=== PATIENT | female | born 1960 | race Caucasian/White ===

== ENCOUNTER 2017-03-12 07:43 | Emergency (ER) | payer BC ==
[2017-03-12 08:08] LABS: #Eosinphils 0.1 thou/uL (0.0-0.7); #Lymphocytes 3.6 thou/uL (1.20-3.40); #Monocytes 0.6 thou/uL (0.11-0.59); #Neutrophils 5.2 thou/uL (1.40-6.50); %Basophils 0.4 % (0.0-1.0); %Eosinophils 1.4 % (0.0-10.0); %Lymphocytes 37.8 % (21.0-51.0); %Monocytes 6.3 % (0.0-10.0); Hemoglobin 14.2 g/dL (12.0-16.0); Mean Corpuscular HGB CONC 33.8 g/dL (32.0-36.0); Mean Corpuscular Volume 91.8 fl (81.0-99.0); Mean Platelet Volume 8.1 fL (7.4-10.4); Platelet Count 285 thou/uL (130-400); RBC Distribution Width 11.3 % (11.5-14.5); Red Blood Cell (RBC) Count 4.57 mill/uL (4.20-5.40); White Blood Cell (WBC) Count 9.7 thou/uL (4.8-10.8)
[2017-03-12] MEDS ORDERED: Ondansetron HCl/PF 4 MG/2 ML Vial ONE (08:08)
[2017-03-12] MEDS ORDERED: Pantoprazole 40 MG VIAL ONE (08:08)
[2017-03-12] MEDS ORDERED: Lidocaine 2% Viscous Solution 20 ML, Aluminum & Magnesium Hydroxide 30 ML, Donnatal Eli... SSW SCH ×3 (08:15)
--- NOTE | 2017-03-12 08:22 | RAD ---
SINGLE VIEW OF THE CHEST: COMPARISON: 10/11/08. HISTORY: Chest pain with dizziness, nausea, and vomiting. FINDINGS: Single view of the chest shows a normal sized cardiomediastinal silhouette. There is no evidence of c onsolidation, mass, or pleural effusion. The bones are unremarkable. IMPRESSION: No evidence of acute cardiopulmonary disease. POS: [facility]
[2017-03-12 08:30] LABS: ALT (SGPT) 51 U/L (8-55); AST (SGOT) 24 U/L (5-34); Albumin 4.8 g/dL (3.5-5.0); Alkaline Phosphatase 100 U/L (40-150); Anion Gap 18 mmol/L (10-20); BUN (Urea Nitrogen) 16 mg/dL (9.8-20.1); Bilirubin, Total 0.9 mg/dL (0.2-1.2); CK (CPK) 72 U/L (29-168); Calc. Creatinine Clearance 0 mL/min (70-130); Calcium 10.2 mg/dL (7.8-10.44); Carbon Dioxide 23 mmol/L (22-29); Chloride 102 mmol/L (98-107); Estimated GFR-MDRD 78; Globulin 3.5 g/dL (2.4-3.5); Glucose 119 mg/dL (70-105); Potassium 3.8 mmol/L (3.5-5.1); Protein, Total 8.3 g/dL (6.0-8.3); Sodium 139 mmol/L (136-145)
[2017-03-12 08:34] LABS: CKMB 0.7 ng/mL (0-6.6); Troponin I Less than 0.010 ng/mL (< 0.028)
[2017-03-12] MEDS ORDERED: Metoclopramide HCl 10 MG/2 ML VIAL ONE (08:53)
[2017-03-12] MEDS ORDERED: Meclizine HCl 25 MG TAB ONE (08:53)
--- NOTE | 2017-03-12 09:22 | CT ---
CT OF THE BRAIN WITHOUT CONTRAST: COMPARISON: 10/11/12. HISTORY: Dizziness with nausea and vomiting that started 2 days ago. TECHNIQUE: Multiple contiguous axial images were obtained in a CT of the brain without contrast. FINDINGS: The brain is normal in morphology and attenuation without focal lesions or confluent areas of infarct ion. There is no evidence of hydrocephalus, intracranial hemorrhage, or extraaxial fluid collection. The calvarium and overlying soft tissues are unremarkable. The visualized paranasal sinuses and mast oid air cells are well aerated. IMPRESSION: No evidence of acute intracranial abnormality. POS: [facility]
--- NOTE | 2017-03-12 10:06 | CT ---
CT ARTERIOGRAM CHEST WITH IV CONTRAST AND 3D MIP IMAGING: HISTORY: Chest pain. FINDINGS: There is good contrast opacification of the pulmonary arteries and thoracic aorta with normal branchi ng of the great vessels. Irregularity parenchymal opacity at the left anterior lateral lung base is stable compared to CT chest from 04/03/15. It may represent an area of scarring. No pleural fluid or mediastinal adenopathy are visible. The inferiormost image shows a small hyperdensity in the gallbl adder lumen that may represent the historically stated gallstone. IMPRESSION: No CT evidence of pulmonary embolus. POS: [facility]
[2017-03-12] MEDS ORDERED: ISOVUE-370 76%-LOCM 1 ML ONE (16:53)
== END 2017-03-12 12:13 | disposition home or self-care (01) ==
LOC: ERS 07:43
DX: K21.9 Gastro-esophageal reflux disease without esophagitis (principal); H81.13 Benign paroxysmal vertigo, bilateral; E78.5 Hyperlipidemia, unspecified; I10 Essential (primary) hypertension; E05.90 Thyrotoxicosis, unspecified without thyrotoxic crisis or storm
CPT/HCPCS: 70450; 71045; 71275; 80053; 82553; 83690; 84484; 85025; 85379; 93005; 96365; 96366; 96375; C9113; J2405; J2765

== ENCOUNTER 2017-03-31 09:30 | Outpatient (CLI) | payer BC ==
[2017-03-31] MEDS ORDERED: Iopamidol 370 76% 100 ML VIAL ONE (13:26)
== END 2017-03-31 09:31 | disposition home or self-care (01) ==
LOC: BICCT 09:30
PROVIDERS: ATTEND Family Medicine
DX: R10.11 Right upper quadrant pain (principal); R11.2 Nausea with vomiting, unspecified
CPT/HCPCS: 74160

== ENCOUNTER 2017-04-04 08:40 | Outpatient (CLI) | payer BC | END 2017-04-04 08:41 | disposition home or self-care (01) | LOC: BICRAD 08:40 | PROVIDERS: ATTEND Family Medicine | DX: R05 Cough (principal); J98.11 Atelectasis | CPT/HCPCS: 71046 ==

== ENCOUNTER 2018-05-19 07:34 | Outpatient (CLI) | payer BC ==
--- NOTE | 2018-05-19 08:51 | CT ---
CT OF THE ABDOMEN AND PELVIS WITH IV CONTRAST: Date: 05/19/18 CONTRAST: 70 mL [id number]. INDICATION: History of diverticulitis with lower pelvic pain and abnormal discharge. COMPARISON: CT of the abdomen and pelvis dated 04/03/15. FINDINGS: There is subsegmental atelectasis involving both lower lobes. There is mild fatty infiltration of the liver. Pancreas, adrenal glands, and kidneys appear within normal limits. There are a few small hypodensitie s within the left kidney that cannot be further characterized. Spleen is normal appearing. There are mild vascular calcifications involving the abdominal aorta. There are a few scattered diverticula involving the sigmoid colon without evidence of active divertic ulitis. Small and large bowel appear within normal limits. The appendix is not definitely visualized. No free fluid is evident. No enlarged lymph nodes are demonstrated. There is mild diffuse osteopenia. There is scattered degenerative and osteoarthritic change. No definite acute osseous abnormality is evident. IMPRESSION: 1. No definite acute CT abnormality within the abdomen or pelvis. 2. Colonic diverticulosis without evidence of active diverticulitis. 3. Fatty liver. 4. Tiny left renal hypodensities, stable to prior exam, difficult to characterize due to their size, but statistically likely reflective of cysts. POS: [facility]
[2018-05-19] MEDS ORDERED: ISOVUE-370 76%-LOCM 1 ML ONE (15:23)
== END 2018-05-19 07:35 | disposition home or self-care (01) ==
LOC: BICCT 07:34
PROVIDERS: ATTEND Specialist
DX: K57.30 Diverticulosis of large intestine without perforation or abscess without bleeding (principal); K76.0 Fatty (change of) liver, not elsewhere classified; R93.422 Abnormal radiologic findings on diagnostic imaging of left kidney
CPT/HCPCS: 74177; Q9966

== ENCOUNTER 2018-05-29 00:09 | Outpatient (CLI) | payer BC ==
[2018-05-29 19:47] LABS: #Basophils 0.1 thou/uL (0.0-0.2); #Eosinphils 0.1 thou/uL (0.0-0.7); #Lymphocytes 2.9 thou/uL (1.20-3.40); #Monocytes 0.6 thou/uL (0.11-0.59); #Neutrophils 3.8 thou/uL (1.40-6.50); %Basophils 0.9 % (0.0-1.0); %Eosinophils 1.3 % (0.0-10.0); %Lymphocytes 38.9 % (21.0-51.0); %Monocytes 7.4 % (0.0-10.0); %Neutrophils 51.5 % (42.0-75.0); Hemoglobin 13.8 g/dL (12.0-16.0); Mean Corpuscular HGB CONC 32.7 g/dL (32.0-36.0); Mean Corpuscular Hemoglobin 30.7 pg (27.0-31.0); Mean Corpuscular Volume 93.8 fL (78.0-98.0); Mean Platelet Volume 8.9 fL (7.4-10.4); Platelet Count 238 thou/uL (130-400); RBC Distribution Width 11.5 % (11.5-14.5); Red Blood Cell (RBC) Count 4.51 mill/uL (4.20-5.40); White Blood Cell (WBC) Count 7.4 thou/uL (4.8-10.8)
[2018-05-29 19:55] LABS: ALT (SGPT) 48 U/L (8-55); AST (SGOT) 29 U/L (5-34); Albumin 4.5 g/dL (3.5-5.0); Alkaline Phosphatase 91 U/L (40-150); Anion Gap 13 mmol/L (10-20); BUN (Urea Nitrogen) 11 mg/dL (9.8-20.1); Bilirubin, Total 0.8 mg/dL (0.2-1.2); Calc. Creatinine Clearance 0 mL/min (70-130); Calcium 9.8 mg/dL (7.8-10.44); Carbon Dioxide 24 mmol/L (22-29); Chloride 105 mmol/L (98-107); Estimated GFR-MDRD 85; Glucose 97 mg/dL (70-105); Potassium 4.3 mmol/L (3.5-5.1); Protein, Total 7.5 g/dL (6.0-8.3); Sodium 138 mmol/L (136-145)
[2018-05-29 20:17] LABS: Hemoglobin A1c 5.2 % (4.0-6.0)
== END 2018-05-29 00:10 | disposition home or self-care (01) ==
LOC: LABBT 00:09
PROVIDERS: ATTEND Specialist
DX: Z01.812 Encounter for preprocedural laboratory examination (principal); K57.90 Diverticulosis of intestine, part unspecified, without perforation or abscess without bleeding; N82.4 Other female intestinal-genital tract fistulae
CPT/HCPCS: 80053; 83036; 85025

== ENCOUNTER 2018-05-29 08:00 | Inpatient (IN) | payer BC ==
--- NOTE | 2018-05-26 13:50 | HP ---
HISTORY OF PRESENT ILLNESS: Alyx Huizar is a 57-year-old female patient, whom Dr. Jones has placed on antibiotics in March 2018 for diverticulitis. She has had a [address] Sanchez, in [address] Acosta documenting diverticulosis. The patient shortly after beginning oral antibiotics in March 2018, began having vaginal discharge. This is more copious at times and more . She is passing flatus and stool out of her vagina. This is a bloody discharge at times. She did have a CAT scan in March 2015 that was normal. The patient still has some lower abdominal pain and tenderness, has completed her antibiotics in March. She has not been on antibiotics since. ALLERGIES: NONE. SOCIAL HISTORY: Tobacco, none. Alcohol, occasionally. MEDICATIONS: 1. Synthroid. 2. Lovaza. 3. Lipitor. 4. Vitamin D. ALLERGIES: NONE. PAST SURGICAL HISTORY: Total abdominal hysterectomy, bilateral salpingo-oophorectomy, endometriosis over two operations. She reports that during her oophorectomy, operation was difficult due to adhesions, Dr. Hernandez. Past colonoscopies as noted above. PAST MEDICAL HISTORY: Hypertension, hypothyroidism, surgically migraines treated with above regimen with past colonoscopies. REVIEW OF SYSTEMS: Ten-point noncontributory. PHYSICAL EXAMINATION: GENERAL: Weight 196 pounds, height 62 inches. Blood pressure 147/81, pulse 107, and temperature 97.9 degrees. HEAD, EARS, EYES, NOSE, AND THROAT: Unremarkable. LUNGS: Clear to auscultation. CARDIAC: Regular rate and rhythm without murmur or gallop. ABDOMEN: Soft. Mild tenderness in her lower abdomen, left lower quadrant without peritoneal signs. Upper abdomen is soft and nontender. EXTREMITIES: Unremarkable. ASSESSMENT AND PLAN: 1. Diverticulitis with colovaginal fistula. We have talked to Dr. Adrienne Sanchez and we will coordinate a bowel prep and colonoscopy, and she will stay on liquids after that and plan a laparoscopic sigmoid resection and colorectal anastomosis. She understands risks of infection, bleeding, reoperation, anastomotic leakage, and consents. 2. Plan CAT scan of the abdomen and pelvis to evaluate her abdominal pain. 3. Surgical hypothyroidism, medically treated. 4. History of migraines, history of diverticulosis. We will start her on antibiotics orally, Augmentin 500 b.i.d. Job ID: [id number]
[2018-05-29 08:20] VITALS: BMI 33.6
[2018-05-31] MEDS ORDERED: Meropenem 2 GM in Sodium Chloride 0.9% 100 ML IVPB SCH (06:30)
[2018-05-31] MEDS ORDERED: Midazolam HCl 2 mg/2 ml Vial ONE (06:37)
[2018-05-31] MEDS ORDERED: Fentanyl 100 MCG/2 ML VIAL ONE ×5 (06:37→13:30)
[2018-05-31] MEDS ORDERED: Dexamethasone 4 mg/ml Vial ONE (06:38)
[2018-05-31] MEDS ORDERED: Scopolamine 1.5 mg/72 hour Patch ONE (06:43)
[2018-05-31] MEDS ORDERED: Ketorolac Tromethamine 30 MG/ML VIAL ONE ×2 (06:43→12:01)
[2018-05-31] MEDS ORDERED: Famotidine/PF 20 mg/2ml Vial ONE (07:29)
[2018-05-31] MEDS ORDERED: Albuterol Sulfate HFA (OR ONLY) ONE (07:30)
[2018-05-31] MEDS ORDERED: Albumin 5% 500 ML ONE (09:49)
[2018-05-31] MEDS ORDERED: Rocuronium Bromide 50 MG/5 ML VIAL ONE (10:12)
[2018-05-31] MEDS ORDERED: SUGAMMADEX SODIUM 200 MG/2 ML VIAL ONE (10:28)
[2018-05-31] MEDS ORDERED: Meperidine HCl/PF 25 MG/ML VIAL SLOW IVP PRN (10:57)
[2018-05-31] MEDS ORDERED: Promethazine HCl 25 MG/ML VIAL SLOW IVP PRN (10:57)
[2018-05-31] MEDS ORDERED: Ondansetron HCl/PF 4 MG/2 ML Vial IVP PRN (10:57)
[2018-05-31] MEDS ORDERED: Promethazine HCl 25 MG/ML VIAL IM PRN (10:57)
[2018-05-31] MEDS ORDERED: HYDROmorphone 2 MG/ML VIAL SLOW IVP PRN (10:57)
[2018-05-31] MEDS ORDERED: Ketorolac Tromethamine 30 MG/ML VIAL IVP PRN (10:57)
[2018-05-31] MEDS ORDERED: Morphine 4 MG/ML VIAL SLOW IVP PRN (11:15)
[2018-05-31] MEDS ORDERED: Ondansetron PF 4 MG/2 ML Vial IVP PRN (11:15)
[2018-05-31] MEDS ORDERED: D5 1/2 NS w/20 mEq KCL 1,000 ML IV SCH (11:15)
[2018-05-31] MEDS ORDERED: Morphine 2 MG/ML SYRINGE SLOW IVP PRN (11:15)
[2018-05-31] MEDS ORDERED: hydrALAZINE 20 MG/ML VIAL SLOW IVP PRN (11:15)
[2018-05-31] MEDS ORDERED: Dextrose 5% in Water 1,000 ML IV PRN (11:45)
[2018-05-31] MEDS ORDERED: Insulin Regular 300 UNITS/3 ML VIAL SC PRN (11:45)
[2018-05-31] MEDS ORDERED: Dextrose 50% Abboject 50 ML SYRINGE SLOW IVP PRN (11:45)
[2018-05-31] MEDS ORDERED: HumaLOG 300 UNITS/3 ML VIAL SC PRN (11:58)
[2018-05-31] MEDS ORDERED: Insulin Regular 300 UNITS/3 ML VIAL ONE (12:09)
[2018-05-31] MEDS ORDERED: Bupivacaine HCl 0.5%/Epinephrine 1:200,000/PF 30 ml Vial ONE (13:35)
[2018-05-31] MEDS ORDERED: Dexamethasone 20 MG/5 ML VIAL ONE (13:56)
[2018-05-31] MEDS ORDERED: Rocuronium Bromide 10 MG/ML (10ML VIAL) ONE (13:56)
[2018-05-31] MEDS ORDERED: PROPOFOL 200 MG/20 ML VIAL ONE (13:56)
[2018-05-31] MEDS ORDERED: diphenhydrAMINE 50 MG/ML VIAL ONE (13:56)
[2018-05-31] MEDS ORDERED: PHENYLEPHRINE-NS 100 MCG/ML 10 ML SYRINGE ONE (13:56)
[2018-05-31] MEDS ORDERED: Lidocaine 1% PF 5 ML VIAL ONE (13:56)
[2018-05-31] MEDS ORDERED: Metoprolol Tartrate 5 MG/5 ML VIAL ONE (13:56)
[2018-05-31] MEDS ORDERED: Metoclopramide HCl 10 MG/2 ML VIAL ONE (13:56)
--- NOTE | 2018-05-31 13:59 | OP ---
DATE OF PROCEDURE: 05/31/2018 PREOPERATIVE DIAGNOSES: Diverticulitis, colovaginal fistula (history of hysterectomy), colonoscopy yesterday by Dr. Sanchez. ESTIMATED BLOOD LOSS: 567 mL. PROCEDURES PERFORMED: Laparoscopic mobilization of splenic flexure, descending colon, sigmoid colon; division of the KODY with assisted low anterior resection; colorectal anastomosis, 33 mm EEA stapler, checked under water without leak. ANESTHESIA: General, TAP block. DESCRIPTION OF PROCEDURE: The patient was taken to the operating room. Under general anesthesia and TAP block, the patient was placed in the dorsal lithotomy position, and perianal, perineum, and vaginal area were prepared with Betadine. Abdomen was prepared with ChloraPrep and draped in routine fashion. Right lateral subcostal incision was made. Pneumoperitoneum to 15 mmHg was obtained with Veress needle, replaced with a 5 port. Periumbilical incision was made. Another 5 mm port was placed. Video laparoscope was inserted. Remainder of the port was placed under laparoscopic visualization. The right lower quadrant incision was made and a 12 port was placed. Left lower quadrant incision was made and a 5 port was placed. The splenic flexure was mobilized, mobilized the gastrocolic ligament from the distal transverse colon, mobilized the splenic flexure using the LigaSure. The left colon was mobilized, freeing its attachments. I then proceeded from a medial to lateral approach, beginning at the sacrum, identifying the hemorrhoidal vessels and dissected it cephalad toward the KODY, dissecting the KODY free using the LigaSure and blunt dissection. The left ureter was identified, kept free of harm. After ureter position was verified, the KODY was divided with a white load ZEESHAN stapler. The splenic flexure with descending colon mobilized off Gerota's fascia, and the descending colon, transverse colon, and splenic flexure were mobilized. There was a taut inflammatory adhesive reaction from her diverticulitis with prior hysterectomy adhesions here. An infraumbilical incision was made from the umbilicus to the pubis, carried down to the skin and subcutaneous tissue and ureter was kept free of harm as the colon was carefully dissected free, which was turned back on itself from the diverticulitis process. It was carefully dissected free from the vaginal cuff and bladder, identifying the fistula, but it was so small, closure was not necessary. I dissected the colon free well below this and the upper rectum, freeing the rectum from the sacral hollow. The mesenteric stalks laterally and posterior, dissected free using the LigaSure. Once the colon was dissected free, it was divided with a contour stapler. At the junction of the descending colon and sigmoid colon, the colon was divided with a ZEESHAN stapler. A 33 mm EEA anvil was then placed in the proximal colon with a pursestring suture of 2-0 Prolene. It reached easily in the pelvis without tension. My internet marketing assistant then turned to the anus, where it was gently dilated, and a 33 mm EEA stapler was inserted and advanced towards the staple line in the rectum and post advanced out and mated through the anvil. In the proximal colon, these mated, approximated within the torque fire range and the stapler fired, loosened and donut was removed and discarded. Good hemostasis was noted as the anastomosis was checked under water and there was no leak. The anastomosis was reinforced with interrupted Lembert sutures of 2-0 silk. Omentum was placed down into the pelvis around the colorectal anastomosis. Abdominal cavity was thoroughly irrigated, irrigant evacuated. Hemostasis was noted. There was no blood in the Andrew bag. Andrew catheter was left in place. Sponge counts were correct and viscera covered with omentum. Seprafilm was placed between the omentum and the abdominal wall. Fascia was closed with continuous suture of #1 PDS. Our gloves had been changed after resection of the colon and placement of the anvil, and prior to final closure of the wound, our gloves and gowns were changed and new gloves and gowns obtained, and subcutaneous tissue was irrigated copiously with pressure irrigation and skin was approximated loosely with mariel and Prevena dressing applied. The patient tolerated the procedure well. She was transferred to the recovery room in stable condition. Job ID: [id number]
[2018-05-31] MEDS: Ketorolac Tromethamine 30 MG/ML VIAL IVP SCH ×3 (14:11→23:01)
[2018-05-31] MEDS: Acetaminophen 1,000 MG in Premix Bag 1 BAG IVPB SCH ×3 (14:11→23:00)
[2018-05-31] MEDS ORDERED: Fish Oil 1,000 MG CAP PO SCH (15:00)
[2018-05-31 16:04] LABS: Hemoglobin 10.6 g/dL (12.0-16.0); Mean Corpuscular HGB CONC 34.8 g/dL (32.0-36.0); Mean Corpuscular Hemoglobin 31.7 pg (27.0-31.0); Mean Platelet Volume 8.9 fL (7.4-10.4); Platelet Count 245 thou/uL (130-400); RBC Distribution Width 11.2 % (11.5-14.5); Red Blood Cell (RBC) Count 3.34 mill/uL (4.20-5.40); White Blood Cell (WBC) Count 20.4 thou/uL (4.8-10.8)
[2018-05-31 16:30] LABS: Band 47 % (5-11); Lymphocytes 4 % (21-51); MDiff Complete? YES; Metamyelocyte 5 % (0-0); Monocytes 4 % (0-10); Neutrophil 40 % (42-75); Platelet Morphology Comment Appears Adequate; RBC Morphology Normal; Reflex for Review?? YES
[2018-05-31] MEDS: 1/2 NS w/KCL 20 mEq 1,000 ML IV SCH ×3 (17:20→23:00)
[2018-05-31] MEDS: Enoxaparin Sodium 40 MG/0.4 ML SYRINGE SC SCH (19:46)
[2018-05-31] MEDS: Gabapentin 300 MG CAP PO SCH (19:46)
[2018-06-01] MEDS: Ketorolac Tromethamine 30 MG/ML VIAL IVP SCH ×2 (05:56→11:33)
[2018-06-01] MEDS: Acetaminophen 1,000 MG in Premix Bag 1 BAG IVPB SCH (05:56)
[2018-06-01] MEDS: Levothyroxine Sodium 125 MCG TAB PO SCH (05:56)
[2018-06-01 06:40] LABS: #Lymphocytes 1.6 thou/uL (1.20-3.40); #Monocytes 1.4 thou/uL (0.11-0.59); #Neutrophils 13.8 thou/uL (1.40-6.50); %Basophils 0.1 % (0.0-1.0); %Eosinophils 0.1 % (0.0-10.0); %Lymphocytes 9.7 % (21.0-51.0); %Monocytes 8.2 % (0.0-10.0); %Neutrophils 81.9 % (42.0-75.0); Hemoglobin 9.5 g/dL (12.0-16.0); Mean Corpuscular HGB CONC 33.4 g/dL (32.0-36.0); Mean Corpuscular Hemoglobin 30.7 pg (27.0-31.0); Mean Platelet Volume 8.5 fL (7.4-10.4); Platelet Count 226 thou/uL (130-400); RBC Distribution Width 11.2 % (11.5-14.5); Red Blood Cell (RBC) Count 3.09 mill/uL (4.20-5.40); White Blood Cell (WBC) Count 16.8 thou/uL (4.8-10.8)
[2018-06-01 07:03] LABS: Anion Gap 16 mmol/L (10-20); BUN (Urea Nitrogen) 13 mg/dL (9.8-20.1); Calc. Creatinine Clearance 79 mL/min (70-130); Calcium 8.7 mg/dL (7.8-10.44); Carbon Dioxide 18 mmol/L (22-29); Chloride 105 mmol/L (98-107); Estimated GFR-MDRD 52; Glucose 141 mg/dL (70-105); Potassium 4.2 mmol/L (3.5-5.1); Sodium 135 mmol/L (136-145)
[2018-06-01] MEDS ORDERED: traMADol HCl 50 MG TAB PO PRN ×2 (08:00)
[2018-06-01] MEDS ORDERED: Ergocalciferol 1.25 MG(50,000 UNITS) CAP PO SCH (09:00)
[2018-06-01] MEDS ORDERED: Atorvastatin Calcium 20 MG TAB PO SCH (09:00)
[2018-06-01] MEDS: Gabapentin 300 MG CAP PO SCH ×2 (09:17→20:11)
[2018-06-01] MEDS: Acetaminophen 500 MG TAB PO SCH ×2 (11:33→18:04)
[2018-06-01] MEDS: 1/2 NS w/KCL 20 mEq 1,000 ML IV SCH (12:11)
[2018-06-01] MEDS ORDERED: Ibuprofen 600 MG TAB PO PRN (17:22)
--- NOTE | 2018-06-01 18:44 | PRG ---
DATE OF SERVICE: 06/01/2018 SUBJECTIVE: Alyx Huizar is doing well, one day status post colon resection for colovesical fistula. She has not had any more vaginal drainage. Andrew catheter has been removed this morning. She is voiding without problems. OBJECTIVE: VITAL SIGNS: Temperature 98.4 degrees, heart rate 106, respiratory rate 16, blood pressure 116/68. This morning, her basic metabolic profile is normal. Her Accu-Cheks postoperatively have ranged from 129 to 212, it was 212 immediately postoperatively, but postoperatively has been 129 to 167. She previously was not a known diabetic. PULMONARY: Clear to auscultation. CARDIAC: Regular rate and rhythm without murmur or gallop. ABDOMEN: Soft. Bowel sounds present. Nontender. Incisional VAC in place. ASSESSMENT AND PLAN: Postoperative hemoglobin 9.6. Her pain control is well controlled with current regimen. Continue gabapentin, Ultram, Tylenol p.r.n. pain. Continue Toradol. Begin Motrin in the morning. Anticipate possible discharge home tomorrow leaving the incisional wound VAC for her to remove Tuesday. We will check hemoglobin A1c in the morning and begin a GI soft diabetic diet tomorrow. Job ID: [id number]
[2018-06-01] MEDS: Enoxaparin Sodium 40 MG/0.4 ML SYRINGE SC SCH (20:11)
[2018-06-02] MEDS: Acetaminophen 500 MG TAB PO SCH ×3 (05:35→11:54)
[2018-06-02] MEDS: Levothyroxine Sodium 125 MCG TAB PO SCH (05:35)
[2018-06-02 07:21] LABS: #Monocytes 1.1 thou/uL (0.11-0.59); #Neutrophils 7.8 thou/uL (1.40-6.50); %Eosinophils 0.2 % (0.0-10.0); %Lymphocytes 24.9 % (21.0-51.0); %Monocytes 9.1 % (0.0-10.0); %Neutrophils 65.8 % (42.0-75.0); Mean Corpuscular HGB CONC 34.2 g/dL (32.0-36.0); Mean Corpuscular Hemoglobin 31.8 pg (27.0-31.0); Mean Corpuscular Volume 92.9 fL (78.0-98.0); Mean Platelet Volume 8.8 fL (7.4-10.4); Platelet Count 162 thou/uL (130-400); RBC Distribution Width 11.5 % (11.5-14.5); White Blood Cell (WBC) Count 11.8 thou/uL (4.8-10.8)
[2018-06-02 07:39] LABS: Hemoglobin A1c 4.4 % (4.0-6.0)
[2018-06-02] MEDS: Gabapentin 300 MG CAP PO SCH (08:42)
[2018-06-02 11:39] VITALS: BP 116/75; TEMP 98.3
--- NOTE | 2018-06-02 13:15 | PRG ---
DATE OF SERVICE: 06/02/2018 SUBJECTIVE: Alyx Huizar is doing well 2 days after laparoscopic-assisted low anterior resection for colovesical fistula. She is urinating without problems. Prevena dressing is in place. She will remove on Tuesday three days from now. She will advance her diet as tolerated. Pain is well controlled on gabapentin 300 b.i.d., Tylenol 1000 mg q.i.d. as needed, and Motrin 600 mg q.i.d. She has not used Ultram, has not used morphine. She has been ambulating well, perhaps a little more sore today, but otherwise doing well. She is ready to go home. She has had a bowel movement and passing gas again normally the first day postoperatively, but by today, hemoglobin is dropped to 8.5, hemodynamically stable. There are no signs of bleeding. This probably just counts for intraoperative blood loss. She will take iron and vitamins at home. OBJECTIVE: LUNGS: Clear to auscultation. CARDIAC: Regular rate and rhythm without murmur or gallop. ABDOMEN: Soft and nontender. Prevena dressing in place. ASSESSMENT AND PLAN: Doing well. Discharge home today. Follow up in my office in about 10 days for staple removal. Job ID: [id number]
--- NOTE | 2018-06-02 17:13 | DIS ---
DATE OF ADMISSION: 05/31/2018 DATE OF DISCHARGE: 06/02/2018 DISCHARGE MEDICATIONS: 1. Gabapentin 300 b.i.d. for 7 days, one refill. 2. Tramadol will fill p.r.n., although she does not feel that she will need it, #22 refills. 3. Thva-pnn-llxhpaz Tylenol Extra Strength 1000 mg 4 times a day. 4. Motrin 600 mg t.i.d. to q.i.d. as needed, take along with ibuprofen. Resume home medications: 1. Metoprolol 12.5 daily. 2. Levothyroxine daily. 3. Atorvastatin daily. DISCHARGE INSTRUCTIONS: Follow up in my office in 10 days after Easter. Remove incisional wound VAC on Monday 06/05 and leave wound open. May shower and bathe, pat dry, and apply dressing as needed for any drainage. Otherwise, leave open. No lifting over 25 pounds. HISTORY: A 57-year-old female with diverticulitis, developed colovesical fistula, completed colonoscopy, continue clear liquids after bowel prep, presented in the morning of admission for laparoscopic mobilization of her distal transverse colon, splenic flexure, descending colon, converted to a lower midline incision due to extreme adhesions from diverticulitis to her pelvis, vaginal cuff (status post hysterectomy), and posterior bladder and pelvic sidewall. The patient underwent low anterior resection with colorectal anastomosis, 33 mm stapler. Postoperatively, she did well. She did have some oozing intraoperatively about 600 or 700 mL blood loss. She was not transfused. Postop hemoglobin on discharge 8.5, hemodynamically stable. Did not require transfusion. She will take iron and vitamins [id number]. No lifting over 25 pounds. Progress tightly, slowly as tolerated. Job ID: [id number]
== END 2018-06-02 14:00 | disposition home or self-care (01) | DRG 330 ==
LOC: SURG A 05-31 05:52 → EDSTATUS 05-31 08:00 → SURG B 05-31 13:18
PROVIDERS: ADMIT Specialist; ATTEND Specialist
PROC: 0DBN4ZZ Excision of Sigmoid Colon, Percutaneous Endoscopic Approach (ICD-10-PCS; principal; 2018-05-31)
PROC: 0DBP4ZZ Excision of Rectum, Percutaneous Endoscopic Approach (ICD-10-PCS; 2018-05-31)
DX: K57.90 Diverticulosis of intestine, part unspecified, without perforation or abscess without bleeding (principal); N82.3 Fistula of vagina to large intestine; K57.32 Diverticulitis of large intestine without perforation or abscess without bleeding; I10 Essential (primary) hypertension; E89.0 Postprocedural hypothyroidism; G43.909 Migraine, unspecified, not intractable, without status migrainosus; Z79.899 Other long term (current) drug therapy; Z90.710 Acquired absence of both cervix and uterus
CPT/HCPCS: 36415; 36416; 80048; 80053; 83036; 85025; 85060; 88307; J0131; J0670; J1100; J1200; J1650; J1815; J1885; J2001; J2185; J2250; J2405; J2704; J2765; J3010; J3480; J3490; P9045; S0028

== ENCOUNTER 2018-06-16 09:03 | Outpatient (CLI) | payer BC ==
--- NOTE | 2018-06-16 10:19 | CT ---
CT ABDOMEN AND PELVIS WITH IV CONTRAST: Date: 06/16/18 Multiple axial tomograms obtained through abdomen and pelvis with IV enhancement. Oral contrast admin istered. Multiplanar reconstruction. INDICATION: Post partial colectomy. Abdominal pain. Comparison made to CT abdomen and pelvis dated 05/19/18. FINDINGS: Lung bases clear. Liver, spleen, and pancreas are unremarkable. Small bowel loops normal. Colon shows stool throughout the colon. Radiopaque suture seen at the rectosigmoid junction. Mild muc osal thickening at this site. There is apparent luminal narrowing at the anastomotic site, which is s uboptimally evaluated. Review of the urinary tract reveals left hydronephrosis, which is new from prior exam. There is dilat ation of left ureter down to the distal pelvis just proximal to the UVJ. Etiology for the apparent ur eteral obstruction is not definitely apparent on this study, although there are some inflammatory pos toperative changes in this location. Right kidney and right urinary tract unremarkable. Urinary bladder unremarkable. IMPRESSION: Moderate left hydronephrosis and dilatation of left ureter to the distal pelvis is now noted since pr ior study. Postop changes at the rectosigmoid region noted and mild stranding in the pelvis consisten t with postoperative change. Retrograde study may be of benefit to assess the apparent ureteral obstruction. POS: [facility]
[2018-06-16] MEDS ORDERED: Iopamidol 370 76% 100 ML VIAL ONE (11:22)
== END 2018-06-16 09:04 | disposition home or self-care (01) ==
LOC: CT 09:03
PROVIDERS: ATTEND Specialist
DX: Z48.815 Encounter for surgical aftercare following surgery on the digestive system (principal); N13.30 Unspecified hydronephrosis; N28.82 Megaloureter; Z90.49 Acquired absence of other specified parts of digestive tract
CPT/HCPCS: 74177

== ENCOUNTER 2018-06-16 17:30 | Inpatient (IN) | payer BC ==
[2018-06-16] MEDS ORDERED: Ondansetron ODT 4 MG TAB PO PRN (20:01)
[2018-06-16] MEDS ORDERED: hydrALAZINE 20 MG/ML VIAL SLOW IVP PRN (20:01)
[2018-06-16] MEDS ORDERED: Ondansetron PF 4 MG/2 ML Vial IVP PRN (20:01)
[2018-06-16 20:06] VITALS: BMI 30.8
[2018-06-16] MEDS ORDERED: Acetaminophen 500 MG TAB PO PRN (20:06)
[2018-06-16] MEDS ORDERED: Ibuprofen 600 MG TAB PO PRN (20:06)
[2018-06-16] MEDS ORDERED: Enoxaparin Sodium 40 MG/0.4 ML SYRINGE SC SCH (21:00)
[2018-06-16 22:14] LABS: #Eosinphils 0.1 thou/uL (0.0-0.7); #Lymphocytes 2.3 thou/uL (1.20-3.40); #Monocytes 0.7 thou/uL (0.11-0.59); #Neutrophils 5.7 thou/uL (1.40-6.50); %Basophils 0.4 % (0.0-1.0); %Eosinophils 1.2 % (0.0-10.0); %Lymphocytes 25.7 % (21.0-51.0); %Monocytes 8.2 % (0.0-10.0); %Neutrophils 64.5 % (42.0-75.0); Hemoglobin 8.6 g/dL (12.0-16.0); Mean Corpuscular HGB CONC 33.1 g/dL (32.0-36.0); Mean Corpuscular Hemoglobin 30.9 pg (27.0-31.0); Mean Corpuscular Volume 93.4 fL (78.0-98.0); Mean Platelet Volume 7.5 fL (7.4-10.4); Platelet Count 340 thou/uL (130-400); Red Blood Cell (RBC) Count 2.78 mill/uL (4.20-5.40); White Blood Cell (WBC) Count 8.8 thou/uL (4.8-10.8)
[2018-06-16 22:16] LABS: Bilirubin Negative (Negative); Blood, Urine Negative (Negative); Clarity CLEAR (Clear); Glucose, Urine (Dipstick) Negative (Negative); Leukocyte Negative (Negative); Nitrite Negative (Negative); Protein, Urine (Dipstick) Negative (Neg-Trace); Specific Gravity, Urine 1.015 (1.002-1.036); Urobilinogen 0.2 mg/dL (0.2-1.0); pH, Urine 5.5 (5.0-9.0)
[2018-06-16 22:19] LABS: Bacteria/HPF None Seen HPF (None Seen); Hyaline Casts/LPF 0-3 HYALINE CAST LPF (0-3 Hyaline); Pathc Cast-AUWi Flag 0.13 (0-2.49); RBC/HPF 0-3 HPF (0-3); Squamous Epithelial None Seen HPF (0-3); WBC/HPF None Seen HPF (0-3)
[2018-06-16 22:35] LABS: Anion Gap 14 mmol/L (10-20); BUN (Urea Nitrogen) 12 mg/dL (9.8-20.1); Calc. Creatinine Clearance 73 mL/min (70-130); Carbon Dioxide 24 mmol/L (22-29); Chloride 104 mmol/L (98-107); Estimated GFR-MDRD 52; Glucose 148 mg/dL (70-105); Potassium 3.6 mmol/L (3.5-5.1); Sodium 138 mmol/L (136-145)
[2018-06-16] MEDS ORDERED: Ketorolac Tromethamine 30 MG/ML VIAL IVP PRN (23:40)
[2018-06-17] MEDS ORDERED: Acetaminophen 1,000 MG in Premix Bag 1 BAG IVPB PRN (02:00)
--- NOTE | 2018-06-17 03:50 | HP ---
HISTORY OF PRESENT ILLNESS: Alyx Huizar is a 57-year-old female, admitted today because of left hydroureter. The patient had a colovaginal fistula, has had a prior hysterectomy and underwent a colonoscopy by Dr. Sanchez followed by 05/31/2018, laparoscopic-assisted mobilization of splenic flexure, descending colon with lower infra-abdominal incision, open sigmoid colon resection with colorectal anastomosis, resolving her diverticular stricture. The open procedure was performed because of inflammatory changes at the pelvic brim and pelvis, making identification of ureter difficult and during the open operation her ureter was identified and felt to be free of harm. The patient has done well postoperatively and I last saw her in my office yesterday when she complained of lower back pain, decreased bowel movements, and low-grade temperatures of 100.5 degrees. For this reason, she underwent a CAT scan of the abdomen and pelvis today revealing moderate left hydroureteronephrosis. The patient was called and admitted directly to the hospital to initiate antibiotics and consultation with Dr. Jared Curtis, Urology with plans for cystoscopy and attempted ureteral stent and if necessary, nephrostomy tube left. The patient was having some problems with constipation, but after the oral contrast and IV contrast CAT scan today, she has had multiple bowel movements and feels this is resolved. There is no free fluid in her abdominal cavity. Her comprehensive metabolic profile is pending. ALLERGIES: MORPHINE ANALOGUES. HABITS: Tobacco, none. Alcohol, rarely. MEDICATIONS: 1. Synthroid. 2. Lovaza. 3. Lipitor. 4. Vitamin D. ALLERGIES: NONE. PAST SURGICAL HISTORY: Total abdominal hysterectomy, bilateral salpingo-oophorectomy, endometriosis over 2 operations. Past colonoscopies, one just prior to the operation, 05/30/2018 and 05/31/2018, laparoscopic assisted open low anterior resection, colorectal anastomosis for colovaginal fistula and diverticulitis. PAST MEDICAL HISTORY: Hypertension, hypothyroidism. Migraines treated with medical regimen. PHYSICAL EXAMINATION: VITAL SIGNS: Height 5 feet 3 inches, weight 174 pounds, 30 BMI, 98.7, 98, 136/84. HEAD, EYES, EARS, NOSE and THROAT: Unremarkable. LUNGS: Clear to auscultation. CARDIAC: Regular rate and rhythm without murmur or gallop. ABDOMEN: Soft and nontender. EXTREMITIES: Unremarkable. Well-healed midline incision. ASSESSMENT AND PLAN: Left hydroureter after 05/31/2018 laparoscopic-assisted low anterior resection with colorectal anastomosis, 33 mm EEA, anastomosis checked under water without leak for colovaginal fistula. Job ID: [id number]
[2018-06-17] MEDS ORDERED: Levothyroxine Sodium 125 MCG TAB PO SCH (06:00)
[2018-06-17] MEDS ORDERED: Lactated Ringer's 1,000 ML IV SCH (07:00)
[2018-06-17] MEDS ORDERED: Scopolamine 1.5 mg/72 hour Patch ONE (08:54)
[2018-06-17] MEDS ORDERED: Polyethylene Glycol 3350 17 GM Packet PO SCH (09:00)
[2018-06-17] MEDS ORDERED: Iothalamate Meglumine 60% 50 ML VIAL FS ONE (09:13)
[2018-06-17] MEDS ORDERED: Ondansetron HCl/PF 4 MG/2 ML Vial IVP PRN (10:20)
[2018-06-17] MEDS ORDERED: Promethazine HCl 25 MG/ML VIAL IM PRN (10:20)
[2018-06-17] MEDS ORDERED: Promethazine HCl 25 MG/ML VIAL SLOW IVP PRN (10:20)
--- NOTE | 2018-06-17 10:47 | RAD ---
RETROGRADE IVP: Date: 06/17/18 4 fluoroscopic images taken in OR during retrograde procedure. INDICATOIN: Left hydronephrosis. Left stent placement. FINDINGS/IMPRESSION: These images show attempt to place left ureteral stent. Attempt was unsuccessful in placing a left ur eteral stent. POS: [facility]
--- NOTE | 2018-06-17 13:52 | CON ---
DATE OF CONSULTATION: 06/17/2018 HISTORY OF PRESENT ILLNESS: This is a 57-year-old white female, who I was asked to see by Dr. Von Vanegas. She had a history of diverticulitis that resulted in a colovaginal fistula. She underwent surgery for this on 05/31/2018. It was started as a laparoscopic procedure and turned to open procedure because of some problems with some inflammatory changes and adhesions at the pelvic brim and pelvis from her prior hysterectomy and also a history of endometriosis. Since the procedure on talking to the patient, she said she has had some left-sided back pain. She has been taking Motrin and Tylenol for it. She has had a little nausea, no vomiting. She has had some low-grade fevers, but no chills. She has had no dysuria. No blood in the urine. She has had no vaginal drainage of any significant amount. She saw Dr. Vanegas yesterday and because of these symptoms, he did a CAT scan. The CAT scan did show moderate left-sided hydronephrosis down to the very distal ureter. There was no stone seen down on this region. Comparing this to a CAT scan done prior to her surgical procedure, she did not have left hydro. He talked to me about her last that we recommend admitting her and started her on some Levaquin, getting some blood work. Her hemoglobin was 8.6, so she is somewhat anemic. Her white count was normal. Platelet count was normal. Creatinine was 1.09. Urinalysis was negative. Looking at her creatinine by history, it was 1.09 the day after surgery and 0.71 a couple of days before the surgery. Looking at her hemoglobin, she has been anemic. It was 10.6 the day of the surgery, it was 13.8 a couple of days before that. PAST MEDICAL HISTORY: She has had a history of endometriosis. She has not required surgery for that. She did have a partial hysterectomy and then bilateral oophorectomy done at 2 different times. She has had this recent procedure done for her diverticulitis and a colovaginal fistula. She has had thyroid surgery for benign thyroid lesion. Her medical history includes hypothyroidism and some elevated cholesterol and lipids. ALLERGIES: SHE HAS SOME ALLERGIES TO CODEINE, MAKES HER THROW UP. SOCIAL HISTORY: She does not smoke. She does not drink. She is . FAMILY HISTORY: Her family history is positive for some diabetes. PHYSICAL EXAMINATION: ABDOMEN: Currently, soft. There is no mass present. IMPRESSION: Left hydronephrosis, which is a new finding with some symptoms related to it occurring since her colectomy. PLAN: The plan will be for cysto and left retrograde and hopefully passage of the left stent. If this is unsuccessful, then we will probably have to look at having a nephrostomy tube placed and the kidney drained and then look at reimplant done at another time. Job ID: [id number]
--- NOTE | 2018-06-17 14:48 | OP ---
DATE OF PROCEDURE: 06/17/2018 PREOPERATIVE DIAGNOSIS: Left hydronephrosis. POSTOPERATIVE DIAGNOSIS: Left hydronephrosis. PROCEDURES PERFORMED: Cysto and left retrograde. ANESTHETIC: General. ESTIMATED BLOOD LOSS: Minimal. FINDINGS: There is no evidence of a urethral stricture disease. There is no evidence of vaginal drainage. The bladder is free of tumor, foreign body, or stone. There were 2 ureteral orifice. Left ureteral orifice was not effluxing. On retrograde study probably about 2 cm up from the left ureteral orifice, the contrast extravasated, we are not able to get any contrast to go into what appeared to be a normal ureter proximal to this could not. We tried gently with the angled Glidewire, but we were not able to get anything up the left ureter. Impression from this then is left ureteral injury. She then have urinary extravasation just left hydro. The plan from this point will be to likely getting her set up for nephrostomy tube placement and then set up at a later date for a ureteral reimplant. DESCRIPTION OF PROCEDURE: Obtained written and verbal consent from the patient and documenting that she received some IV Levaquin. She was taken to the operating suite. She was placed in the supine position on the treatment table. PlexiPulses were placed on her lower extremities and turned on. She was given a general anesthetic and oral obturator intubation. She was placed in the dorsal lithotomy position and sterilely prepped and draped. Cystoscopy was performed with a 22-Danish sheath, this was well lubricated and passed under direct vision through the female urethra into the urinary bladder with the aid of a 30-degree lens and video camera and monitor. The bladder was filled and emptied number of times as it was examined. A 5-Danish Pollack catheter was flushed with contrast and brought in. Sofa Inspector film was taken with the fluoroscopy unit. The [place] catheter was advanced about a centimeter up the left ureter and then some contrast was injected in a retrograde manner that went up a very short segment of ureter and extravasated out indicating a ureteral injury to get no contrast to go past this point into ureter proximal to it. Brought in an angled Glidewire and just gently tried to manipulate to see if we could get anything to go by this and we could not. At this point, the bladder was drained. The instruments were removed. She was taken out of the dorsal lithotomy position, awakened, and extubated and taken by stretcher to the recovery room. Job ID: [id number]
--- NOTE | 2018-06-17 15:10 | PRG ---
DATE OF SERVICE: 06/17/2018 Alyx Huizar is doing well today. This morning, she had a cystoscopy by Dr. Curtis. Retrogrades were unsuccessful in visualizing and stenting the left ureter. Radiologist on-call today the weekend, does not feel comfortable placing the nephrostomy tube and this will be scheduled on Tuesday two days from now. Her renal function is normal. Her pain is manageable with Tylenol. She will be sent home with [facility] and have a nephrostomy tube in 48 hours. She will follow up with Dr. Curtis in a week and half to two and follow up with me in 2 to 3 weeks. Plan is for definitive ureteral repair left in about 8 weeks. Job ID: [id number]
[2018-06-17 15:33] VITALS: TEMP 96
[2018-06-17 15:37] VITALS: BP 124/77
[2018-06-17 15:44] LABS: PTT 30.4 SEC (22.9-36.1); Prothrombin Time 13.7 SEC (12.0-14.7)
[2018-06-17] MEDS ORDERED: Ondansetron PF 4 MG/2 ML Vial ONE (17:09)
[2018-06-17] MEDS ORDERED: PROPOFOL 200 MG/20 ML VIAL ONE (17:09)
[2018-06-17] MEDS ORDERED: Succinylcholine Chloride 20 MG/ML 10 ml SYRINGE FS ONE (17:09)
[2018-06-17] MEDS ORDERED: Dexamethasone 20 MG/5 ML VIAL ONE (17:09)
[2018-06-17] MEDS ORDERED: Lidocaine 1% PF 5 ML VIAL ONE (17:09)
[2018-06-17] MEDS ORDERED: Cipro 250 MG TAB PO SCH (20:00)
[2018-06-17] MEDS ORDERED: Atorvastatin Calcium 20 MG TAB PO SCH (21:00)
--- NOTE | 2018-06-18 02:17 | DIS ---
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 CONSULTATION: Jared Curtis MD PROCEDURES: Cystoscopy, retrograde, unsuccessful. DISCHARGE INSTRUCTIONS: Radiologist on-call weekend, did not feel comfortable, doing nephrostomy tube. Requested that she return in 48 hours on Tuesday to have this performed, 06/19/2018. DISCHARGE FOLLOWUP: She will follow up with me in 2 weeks. Follow up with Dr. Curtis in 10 days. DISCHARGE MEDICATIONS: Her pain is managed with Tylenol. She will resume her home medications: 1. Metoprolol. 2. . 3. Atorvastatin. 4. Levothyroxine. 5. Ibuprofen. DIET AND ACTIVITY: As tolerated. Job ID: [id number]
[2018-06-19] MEDS ORDERED: Ergocalciferol 1.25 MG(50,000 UNITS) CAP PO SCH (09:00)
== END 2018-06-17 16:38 | disposition home or self-care (01) | DRG 661 ==
LOC: SJJU 18:49
PROVIDERS: ADMIT Specialist; ATTEND Specialist
PROC: 0T778ZZ Dilation of Left Ureter, Via Natural or Artificial Opening Endoscopic (ICD-10-PCS; principal; 2018-06-16)
PROC: BT1F1ZZ Fluoroscopy of Left Kidney, Ureter and Bladder using Low Osmolar Contrast (ICD-10-PCS; 2018-06-16)
DX: N13.30 Unspecified hydronephrosis (principal); I10 Essential (primary) hypertension; E03.9 Hypothyroidism, unspecified
CPT/HCPCS: 36415; 74177; 74420; 80048; 81001; 85025; 85610; 85730; 87086; C1758; J0131; J1650; J1956; Q9961

== ENCOUNTER 2018-06-19 08:03 | Day surgery (SDC) | payer BC ==
[2018-06-19 09:05] VITALS: BP 148/98; TEMP 99.4; BMI 31.8
[2018-06-19] MEDS ORDERED: Midazolam HCl 2 mg/2 ml Vial ONE (09:07)
[2018-06-19] MEDS ORDERED: Acetaminophen 500 MG TAB ONE (10:39)
--- NOTE | 2018-06-19 10:47 | CT ---
CT GUIDED LEFT RENAL NEPHROSTOMY TUBE PLACEMENT: HISTORY: Hydronephrosis left kidney. TECHNIQUE/FINDINGS: Informed consent was obtained from the patient. The left distended kidney was localized using CT guid ance. The overlying skin was prepped and draped in usual sterile manner. 1% lidocaine solution was used to anesthetize the overlying soft tissues. An AccuStick system was used to gain access into the dilated left collecting system. Sequential dilatation was performed and an 8 [place] drainage catheter was placed into the dilated left kidney. Position was confirmed using CT. The dilated left k idney decompressed after placement of a nephrostomy tube. IMPRESSION: Successful CT-guided left nephrostomy tube placement. Transcribed Date/Time: 06/19/2018 11:46 AM
== END 2018-06-19 11:30 | disposition home or self-care (01) ==
LOC: SPEC 08:03
PROVIDERS: ATTEND Specialist
PROC: 0T913ZZ Drainage of Left Kidney, Percutaneous Approach (ICD-10-PCS; principal; 2018-06-19)
DX: N13.30 Unspecified hydronephrosis (principal); E89.0 Postprocedural hypothyroidism; Z79.899 Other long term (current) drug therapy; Z88.5 Allergy status to narcotic agent; Z90.49 Acquired absence of other specified parts of digestive tract
CPT/HCPCS: 50020; 77002; J2250

== ENCOUNTER 2018-12-08 12:13 | Outpatient (CLI) | payer BC ==
[~2018-12-08 12:13] MED LIST: Furosemide 40 MG/4 ML VIAL ONE
--- NOTE | 2018-12-08 18:29 | NM ---
EXAM: Nuclear medicine renal scan with Lasix COMPARISON: CT abdomen/pelvis 06/16/2018 HISTORY: Hydronephrosis TECHNIQUE: A nuclear medicine renal exam was administered after administration of 7.5 mCi of techneti um 99m MAG3. 40 mg of Lasix was given 15 minutes prior to injection of the MAG3. FINDINGS: Time to peak is 2.25 minutes on the left and 2.35 minutes on the right. Time of one half max is 7.95 minutes on the left and 6.34 minutes on the right. The renal curves are both normal in appearance without evidence of obstruction. The angiographic phase shows a symmetric appearance of the kidneys. There is symmetric excretion by the kidneys. Split renal function is 54% on the left and 46% on the right. IMPRESSION: Normal renal scan.
== END 2018-12-08 12:14 | disposition home or self-care (01) ==
LOC: NM 12:13
PROVIDERS: ATTEND Urology
DX: N13.5 Crossing vessel and stricture of ureter without hydronephrosis (principal)
CPT/HCPCS: 78708; A4641; A9562; J1940

== ENCOUNTER 2019-09-17 10:07 | Outpatient (CLI) | payer BC ==
--- NOTE | 2019-09-17 10:53 | MMO ---
Bilateral MAMMO Bilat Screen [facility]. CLINICAL HISTORY: Patient is 59 years old and is seen for screening. The patient has no family history of breast cancer. The patient has no personal history of cancer. VIEWS: The views performed were: bilateral craniocaudal with tomosynthesis and bilateral mediolateral oblique with tomosynthesis. FILMS COMPARED: The present examination has been compared to prior imaging studies performed at [facility] on 09/14/2013, at [facility] on 03/04/2010, and at [facility] on 06/21/2011 and 05/10/2016. This study has been interpreted with the assistance of computer-aided detection. MAMMOGRAM FINDINGS: The breasts are almost entirely fat. There are no suspicious masses, suspicious calcifications, or new areas of architectural distortion. IMPRESSION: THERE IS NO MAMMOGRAPHIC EVIDENCE OF MALIGNANCY. A ROUTINE FOLLOW-UP MAMMOGRAM IN 1 YEAR IS RECOMMENDED. THE RESULTS OF THIS EXAM WERE SENT TO THE PATIENT. ACR BI-RADS Category 1 - Negative MAMMOGRAPHY NOTE: 1. A negative mammogram report should not delay a biopsy if a dominant of clinically suspicious mass is present. 2. Approximately 10% to 15% of breast cancers are not detected by mammography. 3. Adenosis and dense breasts may obscure an underlying neoplasm. Reported by: DEENA MENDOZA MD Electonically Signed: [id number]
== END 2019-09-17 10:08 | disposition home or self-care (01) ==
LOC: BICMAMMO 10:07
PROVIDERS: ATTEND Family Medicine
DX: Z12.31 Encounter for screening mammogram for malignant neoplasm of breast (principal)
CPT/HCPCS: 77063; 77067

== ENCOUNTER 2020-04-21 15:11 | Emergency (ER) | payer BC ==
[2020-04-21] MEDS ORDERED: Ketorolac Tromethamine 30 MG/ML VIAL ONE (17:03)
[2020-04-21] MEDS ORDERED: Cyclobenzaprine 10 MG TAB ONE (17:03)
--- NOTE | 2020-04-21 17:57 | RAD ---
RIGHT FEMUR FOUR VIEWS: History: Lower extremity pain. FINDINGS: No fracture. No osseous abnormality. IMPRESSION: No acute findings. POS: AGW
== END 2020-04-21 18:15 | disposition home or self-care (01) ==
LOC: ERS 15:11
DX: S76.311A Strain of muscle, fascia and tendon of the posterior muscle group at thigh level, right thigh, initial encounter (principal); I10 Essential (primary) hypertension; E03.9 Hypothyroidism, unspecified; E78.5 Hyperlipidemia, unspecified; Z79.899 Other long term (current) drug therapy; W01.0XXA Fall on same level from slipping, tripping and stumbling without subsequent striking against object, initial encounter
CPT/HCPCS: 96372; J1885

== ENCOUNTER 2022-07-07 10:33 | Outpatient (CLI) | payer BC | END 2022-07-07 10:34 | disposition home or self-care (01) | LOC: BICMAMMO 10:33 | PROVIDERS: ATTEND Family Medicine | DX: Z12.31 Encounter for screening mammogram for malignant neoplasm of breast (principal); Z78.0 Asymptomatic menopausal state; M85.80 Other specified disorders of bone density and structure, unspecified site | CPT/HCPCS: 77063; 77067; 77080 ==